=== PATIENT | female | born 1945 | race Caucasian/White ===

== ENCOUNTER 2017-03-06 13:51 | Emergency (ER) | payer BC, OTHER ==
[~2017-03-06] VITALS: Ht 167.6 cm; Wt 79.7 kg
[~2017-03-06 13:51] MED LIST: AMLODIPINE-BEN1 EACH PO; ASCO-TABS-1001000 MG PO; ASPIR-TRIN325 M1 PO; ASPIRIN325 M1 PO; BUPROPION XL300 MG PO; BYSTOLIC10 MG PO; CALCIUM600 MG PO; CENTRUM SILVER1 EACH PO; CVS GLUCOSAMIN PO; DIOVAN HCT 31 TABLE1 PO; FEOSOL325 MG PO; Fish Oil PO; Hydrodiuril,Oretic,E PO; LEVOTHROID,S0.125 MG PO; Levothroid,Synthroid PO; PRAVASTATIN SOD80 MG PO; SENOKOT S,PE1 TABLET PO; SERTRALINE HCL100 MG PO; THERAGRAN1 TABLET PO; TRAMADOL HCL50 MG PO; TRICOR145 MG PO; VITAMIN D1000 INTUN PO; Vicodin,Lortab 5/500 PO; Zoloft PO
[2017-03-06 14:59] LABS: HEMATOCRIT 43.7 % (36.0-46.0); MCH 30.6 PG (29.0-34.0); MCHC 32.3 G/DL (30.0-36.0); MCV 94.8 FL (83-99); RBC DIS.WIDTH-CV 12.3 % (11.8-14.6); RBC DIS.WIDTH-SD 43.1 % (39-53); RED BLOOD COUNT 4.61 M/uL (3.80-5.20); WHITE BLOOD COUNT 11.3 K/uL (4.1-10.2)
[2017-03-06 15:11] LABS: CHLORIDE 109 mEq/L (99-109); POTASSIUM 4.3 mEq/L (3.7-5.4); SODIUM 142 mEq/L (136-147)
[2017-03-06 15:13] LABS: GLUCOSE 100 mg/dL (70-99)
[2017-03-06 15:14] LABS: ANION GAP 9 MEQ/L (2-14)
[2017-03-06 15:15] LABS: TOTAL BILIRUBIN 0.4 mg/dL (0.0-1.0)
[2017-03-06 15:17] LABS: ALKALINE PHOSPHATASE 74 IU/L (3-129); GFR ESTIMATE (CALCULATED) 43 mL/min/
[2017-03-06 15:18] LABS: UREA NITROGEN (BUN) 22 mg/dL (9-23)
[2017-03-06 15:20] LABS: LIPASE 15 U/L (1.0-51.0)
[2017-03-06 15:29] LABS: ADD MIUA? YES; BILIRUBIN NEGATIVE; BLOOD LARGE; COLOR STRAW ((YELLOW)); GLUCOSE (STRIP) NEGATIVE; KETONES NEGATIVE; LEUKOCYTES NEGATIVE; NITRITE NEGATIVE; PROTEIN (STRIP) 30; UROBILINOGEN 0.2 MG/DL (0.2-1.0)
[2017-03-06 15:31] LABS: BACTERIA RARE /HPF; EPITHELIAL CELLS RARE /HPF; MUCUS NONE SEEN /LPF; RED BLOOD CELLS TNTC /HPF (0-5); UCUL ADDED? YES; WHITE BLOOD CELLS 0-5 /HPF (0-5)
[2017-03-06 15:49] LABS: MEAN PLAT.VOLUME 10.6 uM^3 (9.5-12.4); PLAT.SUFFICIENCY ADEQUATE; PLATELET COUNT 259 K/uL (156-360)
[2017-03-06] MEDS ORDERED: NORCO 5/3251 TABLET PO (19:31)
[2017-03-06] MEDS ORDERED: FLOMAX0.4 MG PO (19:31)
[2017-03-06] MEDS ORDERED: KEFLEX500 MG PO (19:31)
[2017-03-06 20:18] VITALS: BP 151/92
== END 2017-03-06 20:23 | disposition home or self-care (01) ==
LOC: EME 13:51
DX: N10 Acute pyelonephritis (principal); N20.1 Calculus of ureter; E78.5 Hyperlipidemia, unspecified; I12.9 Hypertensive chronic kidney disease with stage 1 through stage 4 chronic kidney disease, or unspecified chronic kidney disease; N18.9 Chronic kidney disease, unspecified; G89.29 Other chronic pain; F32.9 Major depressive disorder, single episode, unspecified; Z86.73 Personal history of transient ischemic attack (TIA), and cerebral infarction without residual deficits; Z88.8 Allergy status to other drugs, medicaments and biological substances
CPT/HCPCS: 74177; 80053; 81003; 83690; 85027; 87086; 99281; 99285; J0696; J1885; J2405; J3010; J7030; J7050

== ENCOUNTER 2017-09-18 21:16 | Inpatient (IN) | payer BC, OTHER ==
[~2017-09-18] VITALS: Ht 177.8 cm; Wt 86.9 kg
[~2017-09-18 21:16] MED LIST changes: +ASPIR 8181 M1 PO; +CLARITIN10 M3 PO; +CRESTOR20 MG PO; +CYMBALTA60 MG PO; +FLOMAX0.4 MG PO; +KEFLEX500 MG PO; +LEVO-T112 MCG PO; +LOTREL 5/401 CAPSULE PO; +NORCO 5/3251 TABLET PO; +VALIUM5 MG PO; +ZOLOFT100 MG PO
[2017-09-19 08:10] VITALS: BP 184/86
[2017-09-19 12:48] VITALS: BP 188/83
[2017-09-19 15:39] VITALS: BP 159/83
[2017-09-19 20:27] VITALS: BP 163/90
[2017-09-20 00:24] VITALS: BP 158/83
[2017-09-20 04:32] VITALS: BP 175/82
[2017-09-20 06:17] LABS: HEMATOCRIT 36.9 % (36.0-46.0); MCV 94.6 FL (83-99)
[2017-09-20 06:34] LABS: HEMOGLOBIN 11.8 G/DL (11.9-15.5)
[2017-09-20 06:39] LABS: CHLORIDE 108 MEQ/L (99-109); CREATININE 1.4 MG/DL (0.6-1.3); GFR ESTIMATE (CALCULATED) 39 mL/min/; GLUCOSE 137 mg/dL (70-99); POTASSIUM 4.2 MEQ/L (3.7-5.4); SODIUM 141 MEQ/L (136-147); UREA NITROGEN (BUN) 22 mg/dL (9-23)
[2017-09-20 08:00] VITALS: BP 141/71
[2017-09-20 12:00] VITALS: BP 134/63
[2017-09-20 15:38] VITALS: BP 170/81
[2017-09-20 19:57] VITALS: BP 187/88
[2017-09-21] VITALS (8 sets, daily range): BP systolic 127–178; BP diastolic 63–87
[2017-09-21 06:38] LABS: HEMATOCRIT 37.2 % (36.0-46.0); HEMOGLOBIN 12.3 G/DL (11.9-15.5)
[2017-09-22 07:44] VITALS: BP 108/63
[2017-09-22] MEDS ORDERED: BENADRYL25 MG PO (09:18)
[2017-09-22] MEDS ORDERED: TYLENOL REGULA325 MG PO (09:19)
[2017-09-22] MEDS ORDERED: SENNA PLUS TAB1 EACH PO (09:20)
[2017-09-22] MEDS ORDERED: CELECOXIB200 MG PO (09:21)
[2017-09-22] MEDS ORDERED: Salonpas 4% Patch TD (09:21)
[2017-09-22] MEDS ORDERED: ELIQUIS2.5 MG PO (09:21)
[2017-09-22 11:38] VITALS: BP 122/62
[2017-09-22 16:17] VITALS: BP 132/74
[2017-09-22 19:58] LABS: BASOPHIL (%) 0.6 % (0-1); BASOPHIL COUNT 0.1 K/uL (0-0.1); EOSINOPHIL COUNT 0.3 K/uL (0-0.3); HEMATOCRIT 34.1 % (36.0-46.0); HEMOGLOBIN 10.9 G/DL (11.9-15.5); IMMATURE GRANULOCYTE (%) 0.2 % (0.0-0.7); LYMPHOCYTE (%) 12.4 % (15-42); LYMPHOCYTE COUNT 1.1 K/uL (1.0-2.8); MCH 30.6 PG (29.0-34.0); MCV 95.8 FL (83-99); MONOCYTE (%) 7.3 % (3-12); MONOCYTE COUNT 0.6 K/uL (0-0.8); NEUTROPHIL (%) 76.5 % (45-76); NEUTROPHIL COUNT 6.6 K/uL (1.8-6.4); PLATELET COUNT 228 K/uL (156-360); RBC DIS.WIDTH-CV 12.9 % (11.8-14.6); RBC DIS.WIDTH-SD 46.1 % (39-53); WHITE BLOOD COUNT 8.7 K/uL (4.1-10.2)
[2017-09-22 20:20] LABS: ALBUMIN 3.7 G/DL (3.2-4.8); ALKALINE PHOSPHATASE 59 IU/L (3-129); ALT (GPT) 11 IU/L (3-49); AST (GOT) 20 IU/L (2-34); CHLORIDE 105 MEQ/L (99-109); CREATININE 1.1 MG/DL (0.6-1.3); GFR ESTIMATE (CALCULATED) 52 mL/min/; GLUCOSE 108 mg/dL (70-99); POTASSIUM 3.8 MEQ/L (3.7-5.4); RED BLOOD COUNT 3.56 M/uL (3.80-5.20); SODIUM 139 MEQ/L (136-147); TOTAL BILIRUBIN 0.7 MG/DL (0.0-1.0); TOTAL PROTEIN 6.3 G/DL (6.4-8.3); UREA NITROGEN (BUN) 15 mg/dL (9-23)
[2017-09-23] VITALS: BP 125/78
[2017-09-23 04:10] VITALS: BP 163/79
[2017-09-23 04:21] LABS: APPEARANCE CLEAR ((CLEAR)); BILIRUBIN NEGATIVE; BLOOD NEGATIVE; COLOR STRAW ((YELLOW)); GLUCOSE (STRIP) NEGATIVE; KETONES NEGATIVE; LEUKOCYTES TRACE; NITRITE NEGATIVE; PROTEIN (STRIP) NEGATIVE; UROBILINOGEN 0.2 MG/DL (0.2-1.0)
[2017-09-23 04:24] LABS: BACTERIA NONE SEEN /HPF; EPITHELIAL CELLS NONE SEEN /HPF; MUCUS NONE SEEN /LPF; RED BLOOD CELLS 0-5 /HPF (0-5); UCUL ADDED? YES
[2017-09-23 05:31] VITALS: BP 155/87
[2017-09-23 09:24] LABS: HEMATOCRIT 35.9 % (36.0-46.0); HEMOGLOBIN 11.6 G/DL (11.9-15.5); MCH 30.6 PG (29.0-34.0); MCHC 32.3 G/DL (30.0-36.0); MCV 94.7 FL (83-99); RBC DIS.WIDTH-CV 12.8 % (11.8-14.6); RED BLOOD COUNT 3.79 M/uL (3.80-5.20); WHITE BLOOD COUNT 7.8 K/uL (4.1-10.2)
[2017-09-23 10:03] LABS: PLAT.SUFFICIENCY ADEQUATE; PLATELET COUNT 255 K/uL (156-360)
[2017-09-23 10:04] LABS: HEMOGLOBIN A1c (GLYCOHEMOGLOB) 5.9 % (Below 5.7)
[2017-09-23 10:14] LABS: CHLORIDE 105 MEQ/L (99-109); GFR ESTIMATE (CALCULATED) 58 mL/min/; GLUCOSE 117 mg/dL (70-99); HDL CHOLESTEROL 42 MG/DL (Desirable>=50); LDL CHOLESTEROL 131 mg/dL (Desirable<100); NON-HDL CHOLESTEROL 160 mg/dL (Desirable<160); POTASSIUM 3.7 MEQ/L (3.7-5.4); SODIUM 139 MEQ/L (136-147); TOTAL CHOLESTEROL 202 mg/dL (Desirable<200); TRIGLYCERIDES 144 MG/DL (Normal: <150); UREA NITROGEN (BUN) 14 mg/dL (9-23)
[2017-09-23 10:57] VITALS: BP 149/75
[2017-09-23 15:15] VITALS: BP 164/87
[2017-09-24] VITALS: BP 139/76
[2017-09-24 05:54] LABS: HEMATOCRIT 35.5 % (36.0-46.0); HEMOGLOBIN 11.3 G/DL (11.9-15.5); MCH 30.1 PG (29.0-34.0); MCHC 31.8 G/DL (30.0-36.0); MCV 94.7 FL (83-99); PLATELET COUNT 270 K/uL (156-360); RBC DIS.WIDTH-CV 12.7 % (11.8-14.6); RBC DIS.WIDTH-SD 44.2 % (39-53); RED BLOOD COUNT 3.75 M/uL (3.80-5.20); WHITE BLOOD COUNT 7.9 K/uL (4.1-10.2)
[2017-09-24 06:25] LABS: CHLORIDE 107 MEQ/L (99-109); CREATININE 1.1 MG/DL (0.6-1.3); GFR ESTIMATE (CALCULATED) 52 mL/min/; GLUCOSE 105 mg/dL (70-99); POTASSIUM 4.2 MEQ/L (3.7-5.4); SODIUM 140 MEQ/L (136-147); UREA NITROGEN (BUN) 16 mg/dL (9-23)
[2017-09-24 07:14] VITALS: BP 147/79
[2017-09-24 11:29] VITALS: BP 129/68
[2017-09-24 16:19] VITALS: BP 122/64
[2017-09-24 20:30] VITALS: BP 154/70
[2017-09-25 06:25] LABS: HEMATOCRIT 35.1 % (36.0-46.0); HEMOGLOBIN 11.3 G/DL (11.9-15.5); MCH 30.2 PG (29.0-34.0); MCHC 32.2 G/DL (30.0-36.0); MCV 93.9 FL (83-99); PLATELET COUNT 302 K/uL (156-360); RBC DIS.WIDTH-CV 12.7 % (11.8-14.6); RED BLOOD COUNT 3.74 M/uL (3.80-5.20); WHITE BLOOD COUNT 7.9 K/uL (4.1-10.2)
[2017-09-25 06:50] LABS: CHLORIDE 107 MEQ/L (99-109); CREATININE 1.1 MG/DL (0.6-1.3); GFR ESTIMATE (CALCULATED) 52 mL/min/; GLUCOSE 106 mg/dL (70-99); POTASSIUM 3.7 MEQ/L (3.7-5.4); SODIUM 140 MEQ/L (136-147); UREA NITROGEN (BUN) 17 mg/dL (9-23)
[2017-09-25 08:56] VITALS: BP 124/60
[2017-09-25 16:02] VITALS: BP 134/63
[2017-09-25 23:57] VITALS: BP 129/86
[2017-09-26 08:10] VITALS: BP 129/74
[2017-09-26] MEDS ORDERED: LISINOPRIL2.5 MG PO (11:55)
[2017-09-26] MEDS ORDERED: BISACODYL5 MG PO (11:57)
[2017-09-26] MEDS ORDERED: Milk Of Magnesia,MOM PO (11:57)
== END 2017-09-26 14:38 | disposition home health service (06) | DRG 469 ==
LOC: ENRESERV 21:16 → 3WEST 09-19 06:10 → 5SOUTH 09-19 06:10 → 3EAST 09-19 06:10 → 2SOUTH 09-19 06:10 → 3WEST 09-19 12:36 → 2SOUTH 09-19 13:32 → 3WEST 09-21 06:49 → ENRESERV 09-21 06:51 → 3EAST 09-21 17:22 → ENRESERV 09-23 04:22 → 5SOUTH 09-23 05:22 → ENRESERV 09-23 10:42 → 5SOUTH 09-23 15:23 → ENRESERV 09-24 09:52 → 3EAST 09-24 11:05
PROVIDERS: Family Medicine; Hospitalist; Orthopaedic Surgery; Orthopaedic Surgery Sports Medicine
PROC: 0SRC0J9 Replacement of Right Knee Joint with Synthetic Substitute, Cemented, Open Approach (ICD-10-PCS; principal; 2017-09-19)
DX: M17.11 Unilateral primary osteoarthritis, right knee (principal); N18.9 Chronic kidney disease, unspecified; I12.9 Hypertensive chronic kidney disease with stage 1 through stage 4 chronic kidney disease, or unspecified chronic kidney disease; E78.5 Hyperlipidemia, unspecified; Z86.73 Personal history of transient ischemic attack (TIA), and cerebral infarction without residual deficits; E11.22 Type 2 diabetes mellitus with diabetic chronic kidney disease; F32.9 Major depressive disorder, single episode, unspecified; G89.29 Other chronic pain; E03.9 Hypothyroidism, unspecified; G92 Toxic encephalopathy; T40.605A Adverse effect of unspecified narcotics, initial encounter; Y92.239 Unspecified place in hospital as the place of occurrence of the external cause; Z79.82 Long term (current) use of aspirin
CPT/HCPCS: 70450; 70551; 71045; 80048; 80053; 80061; 81003; 82140; 83036; 83605; 85014; 85018; 85025; 85027; 87086; 97530 GO; C1713; J0131; J0690; J1100; J1170; J1885; J2250; J2310; J2795; J7030; J7050; S0020